=== PATIENT | male | born 1995 | race Caucasian/White ===

== ENCOUNTER → 2021-04-21 | Outpatient (CLI) | payer BC, OTHER ==
[2021-04-21 20:51] LABS: Basophils # (A) 0.07 X 10*3/uL (0.00-0.10); Basophils % (A) 1.1 %; Eosinophils # (A) 0.11 X 10*3/uL (0.04-0.35); Eosinophils % (A) 1.8 %; HCT 43.5 % (39.6-50.0); HGB 14.5 g/dL (13.0-17.0); Lymphocytes # (A) 1.69 X 10*3/uL (0.90-5.00); Lymphocytes % (A) 27.2 %; MCH 29.7 pg (27.0-32.0); MCHC 33.3 g/dL (32.0-37.0); MCV 89.1 fL (80.0-97.0); Mean Platelet Volume 11.1 fL (9.5-12.2); Monocytes % (A) 6.4 %; Neutrophils # (A) 3.92 X 10*3/uL (1.80-7.70); Neutrophils % (A) 63.2 %; Platelet Count 305 X 10*3/uL (140-440); RBC 4.88 X 10*6/uL (4.40-5.60); WBC 6.21 X 10*3/uL (4.50-10.00)
[2021-04-22 01:54] LABS: Albumin 4.6 g/dL (3.80-4.90); Albumin/Globulin Ratio 1.84 (1.60-3.17); Anion Gap 9.3 mmol/L (4.00-12.00); BUN/Creat Ratio 15.56 Ratio (12.00-20.00); Calcium 9.5 mg/dL (8.7-10.3); Carbon Dioxide 24.7 mmol/L (21.6-31.8); Chol/HDL Ratio 2.48; Globulin 2.5 g/dL (1.6-3.3); LDL Cholesterol,Calculated 70.6 mg/dL (0.0-131.0); Potassium 4.7 mmol/L (3.5-5.5); Total Bilirubin 0.9 mg/dL (0.2-1.2); Total Protein 7.1 g/dL (6.2-8.2); VLDL Calculation 15.4 mg/dL (5.00-40.00)
[2021-04-22 02:02] LABS: Luteinizing Hormone 9.3 mIU/mL
[2021-04-22 02:03] LABS: Estradiol 92.4 pg/mL; Follicle Stimulating Hormone 1.8 mIU/mL
[2021-04-22 04:24] LABS: Hemoglobin A1C 4.8 % (4.0-6.0)
== END | disposition home or self-care (01) ==
LOC: LABWHC1 13:01
PROVIDERS: ATTEND Nurse Practitioner Family
DX: E25.9 Adrenogenital disorder, unspecified (principal); E29.1 Testicular hypofunction; E34.8 Other specified endocrine disorders; F64.8 Other gender identity disorders; L68.0 Hirsutism; R89.1 Abnormal level of hormones in specimens from other organs, systems and tissues
CPT/HCPCS: 36415; 80053; 80061; 82642; 82670; 83001; 83002; 83036; 84403; 85025

== ENCOUNTER 2021-05-30 11:46 | Emergency (ER) | payer BC, OTHER ==
[2021-05-30 11:52] VITALS: RESP 18; TEMP 100.6
[2021-05-30] MEDS ORDERED: DIPH,PERTUS(ACELL)TETVAC-LF 0.5 ML VIAL IM ONE (12:10)
[2021-05-30] MEDS ORDERED: LIDOCAINE 1% INJ 10MG/ML (20 ML MDV) SQ ONE (12:11)
--- NOTE | 2021-05-30 12:16 | ED ---
Wound/Laceration HPI - General Chief Complaint: Wound/Laceration Stated Complaint: [facility] - rt hand finger lac Source: patient, RN notes reviewed Mode of arrival: ambulatory Limitations: no limitations - History of Present Illness Initial Comments: Patient is a 25-year-old male presented to the ED for right fifth digit laceration. Patient states that while at work finger was caught on sharp metal part causing laceration palmar side of fifth digit. Patient's denies injury was crushing or forcible contact to digit. Patient states that he still have full range of motion, sensation, feeling in digit. Patient denies any numbness or tingling in distal digit. Patient states unaware when last tetanus shot was. Patient was unaware of fever, states he has been feeling well with no nausea, vomiting, cough or congestion reported. - Related Data Allergies Allergy/AdvReac Type Severity Reaction Status Date / Time No Known Allergies Allergy Verified 05/30/21 11:52 Review of Systems ROS Statement: Those systems with pertinent positive or pertinent negative responses have been documented in the HPI. ROS Other: All systems not noted in ROS Statement are negative. Past Medical History Past Medical History: No Reported History History of Any Multi-Drug Resistant Organisms: None Reported Past Surgical History: Tonsillectomy Additional Past Surgical History / Comment(s): tubes in ears Past Psychological History: No Psychological Hx Reported Smoking Status: Current every day smoker Past Alcohol Use History: None Reported Past Drug Use History: None Reported General Exam Limitations: no limitations General appearance: alert, in no apparent distress Respiratory exam: Present: normal lung sounds bilaterally. Absent: respiratory distress, wheezes, rales, rhonchi, stridor Cardiovascular Exam: Present: regular rate, normal rhythm, normal heart sounds. Absent: systolic murmur, diastolic murmur, rubs, gallop, clicks Right General: Present: normal inspection Shoulder Exam: Present: normal inspection Upper Arm exam: Present: normal inspection Elbow exam: Present: normal inspection Forearm Wrist exam: Present: normal inspection Hand Wrist exam: Present: laceration Neurological exam: Present: alert, oriented X3 Skin exam: Present: warm, dry, intact, normal color. Absent: rash Course Vital Signs 05/30/21 11:48 Temperature 100.6 F H Pulse Rate 79 Respiratory 18 Rate Blood Pressure 138/84 O2 Sat by Pulse 100 Oximetry Procedures - Laceration Laceration #1 Consent Obtained: verbal consent Indication: laceration Site: hand (Right fifth digit palmar surface) Size (cm): 2 Description: linear Sedation/Analgesia: none Anesthetic Used: lidocaine 1% Anesthesia Technique: local infiltration Amount (mls): 5 Pre-repair: irrigated extensively Type of Sutures: nylon Size of Sutures: 4-0 Number of Sutures: 5 Technique: simple, interrupted Patient Tolerated Procedure: well Medical Decision Making - Medical Decision Making Patient presented for right hand fifth digit laceration. Hand was x-rayed and showed no acute processes or fractures. Laceration was irrigated and cleaned, lidocaine was used locally SQ, 5 sutures were placed closing laceration. Patient was given tetanus booster shot, laceration was covered with antibiotic ointment. Pain management was discussed with [id number] medication. Return parameters were discussed patient noted to have a fever with no current symptoms patient aware. Disposition Clinical Impression: Laceration, Laceration of finger, right Disposition: HOME SELF-CARE Condition: Stable Instructions (If sedation given, give patient instructions): Care For Your Stitches (ED), Finger Laceration (ED) Additional Instructions: Have sutures removed in 10 days. Please return to the Emergency Department if symptoms worsen or any other concerns. Is patient prescribed a controlled substance at d/c from ED?: No Referrals: Yumiko Pantoja MD [Primary Care Provider] - 1-2 days Time of Disposition: 13:08
--- NOTE | 2021-05-30 12:29 | XR ---
EXAMINATION TYPE: XR hand complete RT DATE OF EXAM: 05/30/2021 CLINICAL HISTORY: pain TECHNIQUE: Frontal, lateral and oblique images of the right hand are obtained. COMPARISON: None. FINDINGS: There is no acute fracture/dislocation evident. The joint spaces appear within normal limi ts. The overlying soft tissue appears unremarkable. IMPRESSION: There is no acute fracture or dislocation ICD 10 NO FRACTURE, INITIAL EVALUATION
[2021-05-30] MEDS ORDERED: BACITRACIN OINT 1 EACH PACKET TOPICAL ONE (13:00)
[2021-05-30 13:44] VITALS: BP 134/78; PULSE 84
== END 2021-05-30 13:44 | disposition home or self-care (01) ==
LOC: EC 11:46
DX: S61.216A Laceration without foreign body of right little finger without damage to nail, initial encounter (principal); F17.200 Nicotine dependence, unspecified, uncomplicated; Z90.89 Acquired absence of other organs; W26.8XXA Contact with other sharp object(s), not elsewhere classified, initial encounter
CPT/HCPCS: 12001; 90471; 90715; 99283

== ENCOUNTER 2021-06-13 08:28 | Day surgery (SDC) | payer BC, OTHER ==
[2021-06-12 08:26] VITALS: BMI 21.8
[~2021-06-13 08:28] MED LIST: DEXAMETHASONE SOD PHOSPHATE 4 MG/ML 1 ML VIAL IV ONE; HYDROmorphone 0.5 MG/0.5 ML SYRINGE IVP PRN; LACTATED RINGERS 1,000 ML IV SCH; LIDOCAINE 1% (10MG/ML) FOR IV START INTRADERMA PRN; ONDANSETRON 4 MG/2 ML VIAL IVP ONE; SCOPOLAMINE 1.5MG/72HR PATCH TRANSDERM ONE
--- NOTE | 2021-06-13 08:38 | P.HPOR ---
History of Present Illness H&P Date: 06/13/21 Chief Complaint: Right small finger digital nerve laceration Subjective: This is a 25 year old female that presents today for initial evaluation regarding a right small finger laceration that occurred on 05/30/21. 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 She was initially seen at occupational health then sent to the ED where here wound was sutured. She just recently had suture removal at 10 days after her injury but is still noticing persistent numbness distal to the laceration on the radial boarder of her right small finger. She denies any other areas of injury and denies any other areas of pain. Physical Examination: RUE: AIN/PIN/Radial/Ulnar/Median motor intact. Radial/Ulnar/Median SILT. 2+/4 Radial/Ulnar pulses palpated. Sensation diminished to light tough and 2 point discrimination greater than 8 along radial boarder of right small finger, ulnar boarder 2 point is 4mm. FDP/FDS intact to RSF. Oblique 2cm incision over volar radial boarder of right small finger near level of PIP joint crease. Imaging: X-Rays of the right hand demonstrate no fracture, dislocation or arthritic process. Impression: 1.)RSF radial digital nerve laceration. Plan: Diagnosis and treatment options were discussed with the patient. Physical exam findings today are consistent with a radial digital nerve laceration to the right small finger. At this time I recommend formal surgical exploration due to the neuro deficits she presents with today. Possibility of digital nerve repair and flexor tendon repair were discussed. We discussed that if there is a digital nerve laceration that is amendable to repair it will likely take several months and up to a year before we start to see improvements in sensation and that the goal is to regain protective sensation in the area of the current deficit. The patient was agreeable with this plan of action and wishes to proceed with surgery. I anticipate she will require up to 5-6 weeks of clean dry left handed work only to protect any type of nerve repair that may be done, full limitations will be known after surgical exploration depending on what structures are injured. -Kaleb Blum DO Orthopedic Hand/Upper Extremity Surgeon Past Medical History Past Medical History: No Reported History Additional Past Medical History / Comment(s): cut finger 12 days ago @work- wearing bandage, chiari malformation, transgender History of Any Multi-Drug Resistant Organisms: None Reported Past Surgical History: Tonsillectomy Additional Past Surgical History / Comment(s): tubes in ears, wisdom teeth removed Past Anesthesia/Blood Transfusion Reactions: Previous Problems w/ Anesthesia Additional Past Anesthesia/Blood Transfusion Reaction / Comment(s): woke up dur ing wisdom being removed Smoking Status: Current every day smoker, Vaper - Past Family History Mother Family Medical History: No Reported History Medications and Allergies Home Medications Medication Instructions Recorded Confirmed Type Bicalutamide [Casodex] 50 mg PO DAILY 06/12/21 06/12/21 History Estradiol [Estrace] 2 mg PO TID 06/12/21 06/12/21 History Allergies Allergy/AdvReac Type Severity Reaction Status Date / Time No Known Allergies Allergy Verified 06/12/21 08:23 Physical Examination Osteopathic Statement: *. No significant issues noted on an osteopathic structural exam other than those noted in the History and Physical/Consult.
[2021-06-13] MEDS ORDERED: LACTATED RINGERS 1,000 ML IV ONE (08:42)
[2021-06-13] MEDS ORDERED: PROPOFOL 10 MG/ML 20 ML VIAL IV ONE (10:56)
[2021-06-13] MEDS ORDERED: MIDAZOLAM 2 MG/2 ML VIAL ONE (10:56)
[2021-06-13] MEDS ORDERED: fentaNYL (PF) 50 MCG/ML 2 ML AMP ONE (10:56)
[2021-06-13] MEDS ORDERED: LIDOCAINE 1% INJ 10MG/ML (20 ML MDV) ONE (10:56)
[2021-06-13] MEDS ORDERED: BUPIVACAINE (PF) 0.5% 30 ML VIAL SQ ONE (11:22)
[2021-06-13 11:58] VITALS: TEMP 97.1
[2021-06-13 13:03] VITALS: BP 109/72; PULSE 60; RESP 16
--- NOTE | 2021-06-13 21:03 | P.OP ---
Date of Procedure: 06/13/21 Preoperative Diagnosis: Right small finger radial digital nerve laceration Postoperative Diagnosis: Right small finger radial digital nerve laceration Procedure(s) Performed: 1.) Right small finger wound exploration 2cm. 2.) Right small finger radial digital nerve repair Anesthesia: JENNY Surgeon: Kaleb Blum Line Repairer #1: Hari Meraz Estimated Blood Loss (ml): 0 Pathology: none sent Condition: stable Disposition: PACU Description of Procedure: This is a 26 year old female who sustained a laceration to her right small finger while at work after cutting her finger on a sharp piece of metal. She was found to clinically have persistent numbness distal to her laceration with concern for possible digital nerve laceration. She presented today for surgical exploration of the wound with possible tendon/nerve repair. Risks and benefits of surgery were discussed with the patient including bleeding, damage to surrounding tissue, infection, need for further surgery as well as risks of anesthesia including pulmonary embolism and even and the patient wished to proceed with surgical intervention. The patient was seen in the pre-operative area by myself. Consent and H&P were completed and updated. The correct extremity was marked in the pre-operative area by myself and all other questions were answered. Operative Narrative: The patient was brought to the operating room by the department of anesthesia. They remained on the portable stretcher and a rolling hand table was brought to the side of the operative extremity. Pre-operative time out was performed indicating the correct patient, procedure and laterality. All in the room agreed. Pre-operative antibiotics were given prior to skin incision. The patient was then drifted off to sleep by the department of anesthesia. A nonsterile tourniquet was then applied to the operative extremity and the right upper extremity was then prepped and draped in normal sterile fashion. The operative extremity was the exsanguinated with an esmarch bandage and the tourni quet was inflated to 250mmHg. The location of her transverse laceration at the level of the volar PIP joint flexion crease was extended distally and proximally with a 15 blade scalpel in a Abhishek type fashion proximally and a mid axial fashion distally. Blunt dissection was taken down to the level of the flexor tendon sheath overlying the A4 linda. The flexor tendon sheath was directly visualized and was intact with no disruption. Attention was then directed at the radial neurovascular bundle of the small finger which was identified. The patient had a complete laceration of her radial digital nerve at the level of the trifurcation of her digital nerve. Nerve edges were identified and they were deemed amendable to repair. Utilizing micro instruments a 8-0 nylon suture was used to approximate the proximal and distal nerve edges in a tension free manner with 3 simple sutures 120 degrees apart. The wound was then irrigated, skin edges were approximated with 4-0 nylon suture. A sterile dressing consisting of bacitracin, adaptic, 4x4s, cast padding and a ulnar gutter splint was applied. The tourniquet was let down at 28 minutes and all digits immediately had brisk cap refill. The patient was then woken by the department of anesthesia and transferred to PACU in stable condition. Kaleb Blum D.O. Orthopedic Hand/Upper Extremity Surgeon
== END 2021-06-13 13:33 | disposition home or self-care (01) ==
LOC: OR 08:28
PROVIDERS: ATTEND Orthopaedic Surgery Hand Surgery
DX: S61.216A Laceration without foreign body of right little finger without damage to nail, initial encounter (principal); F17.200 Nicotine dependence, unspecified, uncomplicated
CPT/HCPCS: 64831; J2250; J1100; J2405; J0690; J2001; J3010; J2704

== ENCOUNTER → 2025-02-26 | Outpatient (CLI) | payer OTHER ==
--- NOTE | 2025-02-26 17:03 | XR ---
EXAMINATION TYPE: XR foot complete RT DATE OF EXAM: 02/26/2025 4:57 PM INDICATION: Patient age:Male; 29 years old; Reason for study: S97.81XA CRUSHING INJURY OF RIGHT FOOT, INITIAL ENCOUNTER; [facility]. pain COMPARISON: None TECHNIQUE: The right foot was examined in the AP, oblique, and lateral projections. FINDINGS: No evidence of any acute osseous pathology. No evidence of soft tissue swelling. Joints are preserve d. 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 IMPRESSION: No evidence of acute fracture. [facility], , 02/26/2025 5:00 PM
== END | disposition home or self-care (01) ==
LOC: RADXRMAIN 16:37
PROVIDERS: ATTEND Emergency Medicine
DX: S97.81XA Crushing injury of right foot, initial encounter (principal)